=== PATIENT | female | born 1990 | race Caucasian/White ===

== ENCOUNTER 2021-09-16 01:53 | Emergency (ER) | payer OTHER ==
[2021-09-16 03:30] LABS: HEMOGLOBIN 13.5 gm/dl (12.3-15.3); RED BLOOD COUNT 4.33 M/UL (4.00-5.10); WHITE BLOOD COUNT 11.3 K/UL (4.5-11.0)
[2021-09-16 03:43] LABS: BUN/CREATININE RATIO 15 (0-10)
== END 2021-09-16 04:33 | disposition home or self-care (01) ==
LOC: ER1 01:53
DX: I10 Essential (primary) hypertension (principal); R10.13 Epigastric pain
CPT/HCPCS: 80053; 82550; 82553; 84439; 84443; 84484; 85025; 93005; 96374; 96375; 99284